=== PATIENT | female | born 1960 | race African-American/Black ===

== ENCOUNTER 2019-01-12 19:36 | Emergency (ER) | payer OTHER ==
[2019-01-12] MEDS ORDERED: Acetaminophen 500 MG TAB ONE (19:50)
[2019-01-12 20:03] LABS: #Lymphocytes 1.8 thou/uL (1.20-3.40); #Monocytes 0.3 thou/uL (0.11-0.59); #Neutrophils 5.2 thou/uL (1.40-6.50); %Basophils 0.5 % (0.0-1.0); %Eosinophils 0.4 % (0.0-10.0); %Lymphocytes 24.6 % (21.0-51.0); %Monocytes 4.5 % (0.0-10.0); Hemoglobin 15.4 g/dL (12.0-16.0); Mean Corpuscular HGB CONC 33.4 g/dL (32.0-36.0); Mean Platelet Volume 8.4 fL (7.4-10.4); Platelet Count 164 thou/uL (130-400); RBC Distribution Width 13.3 % (11.5-14.5); White Blood Cell (WBC) Count 7.4 thou/uL (4.8-10.8)
--- NOTE | 2019-01-12 20:16 | RAD ---
PORTABLE CHEST: 01/12/19 HISTORY: Weakness. Lungs are clear. Heart and mediastinum unremarkable. Vasculature normal. IMPRESSION: Unremarkable chest. POS: AGW
--- NOTE | 2019-01-12 20:16 | RAD ---
RIGHT HIP: 01/12/19 Two views. HISTORY: Injury. Hip pain. Exam is suboptimal. The frontal exam shows poor detail possibly from soft tissue attenuation. There a re mild degenerative changes at the hip with some spurring from the femoral head. No definite fractur e identified. IMPRESSION: Suboptimal exam. No definite fracture identified. Consider repeat exam with AP pelvis. POS: AGW
[2019-01-12 20:24] LABS: ALT (SGPT) Less than 7 U/L (8-55); AST (SGOT) 9 U/L (5-34); Albumin 3.7 g/dL (3.5-5.0); Alkaline Phosphatase 74 U/L (40-150); Anion Gap 11 mmol/L (10-20); BUN (Urea Nitrogen) 14 mg/dL (9.8-20.1); Bilirubin, Total 0.6 mg/dL (0.2-1.2); CK (CPK) 22 U/L (29-168); Calc. Creatinine Clearance 0 mL/min (70-130); Calcium 8.5 mg/dL (7.8-10.44); Carbon Dioxide 23 mmol/L (22-29); Chloride 105 mmol/L (98-107); Estimated GFR-MDRD 85; Globulin 3.1 g/dL (2.4-3.5); Glucose 96 mg/dL (70-105); Lipase 11 U/L (8-78); Protein, Total 6.8 g/dL (6.0-8.3); Sodium 135 mmol/L (136-145)
[2019-01-12 20:58] LABS: Bilirubin Negative (Negative); Blood, Urine Negative (Negative); Clarity CLOUDY (Clear); Glucose, Urine (Dipstick) Negative (Negative); Leukocyte Negative (Negative); Nitrite Negative (Negative); Protein, Urine (Dipstick) Negative (Neg-Trace); Specific Gravity, Urine 1.008 (1.002-1.036); pH, Urine 6.5 (5.0-9.0)
== END 2019-01-12 22:43 | disposition home or self-care (01) ==
LOC: ERS 19:36
DX: E86.0 Dehydration (principal); F17.210 Nicotine dependence, cigarettes, uncomplicated; I10 Essential (primary) hypertension; Z79.899 Other long term (current) drug therapy
CPT/HCPCS: 36415; 71045; 80053; 81003; 82550; 83605; 83690; 83735; 83880; 84484; 85025; 93005; 96360

== ENCOUNTER 2019-06-25 13:06 | Inpatient (IN) | payer OTHER ==
[~2019-06-25 13:06] MED LIST: ISOVUE-370 76%-LOCM 1 ML ONE
[2019-06-25 13:34] LABS: #Lymphocytes 1.5 thou/uL (1.20-3.40); #Monocytes 0.4 thou/uL (0.11-0.59); #Neutrophils 3.8 thou/uL (1.40-6.50); %Basophils 0.2 % (0.0-1.0); %Eosinophils 0.4 % (0.0-10.0); %Lymphocytes 26.7 % (21.0-51.0); %Monocytes 6.6 % (0.0-10.0); %Neutrophils 66.1 % (42.0-75.0); Hemoglobin 15.3 g/dL (12.0-16.0); INR-International Normal Ratio 0.9; Mean Corpuscular HGB CONC 33.3 g/dL (32.0-36.0); Mean Corpuscular Hemoglobin 28.6 pg (27.0-31.0); Mean Corpuscular Volume 85.9 fL (78.0-98.0); PTT 27.2 SEC (22.9-36.1); Platelet Count 186 thou/uL (130-400); Prothrombin Time 12.4 SEC (12.0-14.7); RBC Distribution Width 12.9 % (11.5-14.5); Red Blood Cell (RBC) Count 5.34 mill/uL (4.20-5.40); White Blood Cell (WBC) Count 5.8 thou/uL (4.8-10.8)
--- NOTE | 2019-06-25 13:35 | CT ---
CT HEAD WITHOUT CONTRAST: INDICATIONS: Stroke alert. FINDINGS: There is no acute intracranial hemorrhage or mass effect. There is multifocal white matter hypoattenu ation, indicative of lacunar infarctions and microvascular ischemic disease. Lacunar infarction in th e left cerebellar hemisphere is also present. The ventricular system demonstrates mild ex vacuo dilat ation. IMPRESSION: 1. No acute intracranial hemorrhage or mass effect. 2. Multifocal lacunar infarctions and white matter ischemic disease. Telephone call placed at 1317 hours on 06/25/2019. CODE CR
--- NOTE | 2019-06-25 13:50 | CT ---
CTA Angio Head W WO Con History: Stroke alert. Left upper and lower weakness Comparison: CT brain same day Findings: CT angiogram of the head and neck performed after the intravenous administration of contras t. 3-D rendering provided. There is a spiculated left upper lobe mass measuring 1.4 cm in size. Severe emphysema the upper lobes. Moderate degenerative changes of the cervical spine. There is occlusion of the right vertebral artery from the level of the origin from the subclavian art norma to the level of C5. Left vertebral artery is patent and dominant. The intradural right vertebral artery is attenuated and appears to terminate in the PICA. There is occlusion of the left A2 segment anterior cerebral artery axial image [id number] with adequate peripheral vascular flow likely from collaterals from the left MCA distribution. Impression: 1. Occluded left A2 segment anterior cerebral artery. 2. Occluded right vertebral artery from the subclavian to the level of C5 with hypoplastic intradural vertebral artery which appears to terminate within the PICA. 3. Spiculated left upper lobe mass concerning for malignancy. Pulmonary consultation advised. Workup recommended. Code CR: Dr. Johnson notified of findings via telephone at 1:38 PM
[2019-06-25 13:53] LABS: ALT (SGPT) Less than 7 U/L (8-55); AST (SGOT) 8 U/L (5-34); Alkaline Phosphatase 66 U/L (40-110); Anion Gap 11 mmol/L (10-20); BUN (Urea Nitrogen) 8 mg/dL (9.8-20.1); Bilirubin, Total 0.9 mg/dL (0.2-1.2); Calc. Creatinine Clearance 0 mL/min (70-130); Calcium 9.2 mg/dL (7.8-10.44); Carbon Dioxide 23 mmol/L (22-29); Chloride 104 mmol/L (98-107); Estimated GFR-MDRD Greater than 90; Globulin 3.3 g/dL (2.4-3.5); Glucose 93 mg/dL (70-105); Potassium 3.7 mmol/L (3.5-5.1); Protein, Total 7.3 g/dL (6.0-8.3); Sodium 134 mmol/L (136-145)
[2019-06-25 16:01] LABS: Acetaminophen Less than 6.0 mcg/mL (10.0-30.0); Alcohol Less than 10 mg/dL (Less than 10); Salicylate Less than 8.0 mg/dL (15.0-30.0)
[2019-06-25 16:45] LABS: Troponin I Less than 0.010 ng/mL (< 0.028)
[2019-06-25] MEDS ORDERED: Bisacodyl 10 MG SUPP PR PRN (16:47)
[2019-06-25] MEDS ORDERED: hydrALAZINE 20 MG/ML VIAL SLOW IVP PRN (16:47)
[2019-06-25] MEDS ORDERED: Milk Of Magnesia 30 ML UDCUP PO PRN (16:47)
[2019-06-25] MEDS ORDERED: Communication Order-Pharmacy FS SCH (16:47)
[2019-06-25] MEDS ORDERED: Labetalol HCl 100 MG/20 ML VIAL SLOW IVP PRN (16:47)
[2019-06-25] MEDS ORDERED: niCARdipine 25 MG in Sodium Chloride 0.9% 250 ML 250 ML IVPB PRN (16:47)
[2019-06-25] MEDS ORDERED: Ondansetron ODT 4 MG TAB PO PRN (16:51)
[2019-06-25] MEDS ORDERED: Calcium Carbonate 500 MG ChewTAB PO PRN (16:51)
[2019-06-25] MEDS ORDERED: Ondansetron PF 4 MG/2 ML Vial IVP PRN (16:51)
[2019-06-25] MEDS ORDERED: Senokot S 8.6-50 MG TAB PO PRN (16:51)
[2019-06-25] MEDS: Sodium Chloride 0.9% 1,000 ML IV SCH (19:30)
[2019-06-25] MEDS: Acetaminophen 325 MG TAB PO PRN (19:31)
[2019-06-25] MEDS: Atorvastatin Calcium 40 MG TAB PO SCH (20:42)
[2019-06-25] MEDS: Docusate 100 MG CAP PO SCH (20:42)
[2019-06-25] MEDS: Famotidine 20 MG TAB PO SCH (20:42)
--- NOTE | 2019-06-25 22:15 | HP ---
PRIMARY CARE PHYSICIAN: [facility]. CHIEF COMPLAINT: Left-sided weakness since 12:00 p.m. HISTORY OF PRESENT ILLNESS: The patient is a 59-year-old female with hypertension and tobacco dependence, currently not on any medications, presented to the emergency room with above complaints. Around 12:00 p.m., the patient had sudden onset of left-sided weakness while she was sitting. She fell on the floor. She was however able to feel her left side. She denies any double vision, blurring of vision, facial asymmetry, weakness, numbness, headache, or any other complaints. She denies previous symptoms in the past. She is currently not on any medications. No seizures reported. She denies any chest pain, palpitations, or syncope. In the emergency room, she received tPA. Symptoms completely resolved half way to the tPA. PAST MEDICAL HISTORY: 1. Hypertension. 2. Tobacco dependence. 3. Medication noncompliance. PAST SURGICAL HISTORY: section x4. ALLERGIES: NO KNOWN DRUG ALLERGIES. CURRENT HOME MEDICATIONS: Reviewed with the patient and none. SOCIAL HISTORY: The patient smokes 3 to 4 cigars on a daily basis. No alcohol or drug use. FAMILY HISTORY: Negative for heart disease. REVIEW OF SYSTEMS: All other review of systems were reviewed and were found negative. PHYSICAL EXAMINATION: VITAL SIGNS: Temperature 98, respiration of 16, blood pressure 120/80, O2 saturation 99% on room air, pulse rate of 98. GENERAL: A 59-year-old female in no apparent distress. HEENT: Head, atraumatic and normocephalic. Sclerae anicteric. Moist mucous membranes. No oral lesion. NECK: Supple. No JVD. No carotid bruit. LUNGS: Clear to auscultation bilaterally. No wheezing, rales, or rhonchi. HEART: S1 and S2 present. Regular rate and rhythm. No murmurs, rubs, or gallops appreciated. ABDOMEN: Soft, nontender. Bowel sounds present. No rebound or guarding. EXTREMITIES: No edema or calf tenderness. NEUROLOGIC: Grossly nonfocal. Moves all 4 extremities. PSYCHIATRY: Alert, awake, oriented x3. SKIN: Warm and dry. LYMPH NODES: No palpable lymph nodes in the neck. PERIPHERAL VASCULAR: Radial pulses palpable bilaterally. MUSCULOSKELETAL: No joint swelling tenderness. LABORATORY FINDINGS: CBC showed WBC 5.8 with hemoglobin 15.3, hematocrit 45.9, platelet 186. PT/INR, PTT normal range. Chemistry showed sodium 134, potassium 3.7, chloride 104, bicarb 23, creatinine 0.68. Magnesium 2.2. Troponin was negative. IMAGING DATA: CT scan of the brain by my review was negative for acute findings. It showed white matter ischemic disease with multifocal lacunar infarctions. CT of the [place] showed occluded left A2 segment of the anterior cerebral artery with occluded right vertebral artery from subclavian to C5. It also showed some spiculated left upper lobe lung mass. EKG by my review showed sinus rhythm. IMPRESSION: 1. Acute right MCA distribution CVA causing left-sided weakness, status post tPA. 2. Hypertension, noncompliant with medications. 3. Tobacco dependence, the patient was counseled. 4. Hyponatremia. 5. Left upper lobe lung mass with severe emphysema on the CT angio. PLAN: The patient will be monitored in the intensive care unit. The patient received tPA in the emergency room. We will start aspirin as well as DVT prophylaxis 24 hours after tPA. Aspirin will be initiated at that time. We will start statins. We will check fasting lipid profile. Consult Neurology. We will get MRI of the brain as well as echocardiogram. CTA has been done. We will check hemoglobin A1c. The patient was advised to follow up with Pulmonary as outpatient for lung mass evaluation. Plan of care was discussed with the patient in detail, she stated understanding. Job ID: [id number]
[2019-06-26] MEDS: Acetaminophen 325 MG TAB PO PRN ×3 (06:45→21:10)
[2019-06-26] MEDS: Famotidine 20 MG TAB PO SCH ×2 (08:16→21:09)
[2019-06-26] MEDS: Docusate 100 MG CAP PO SCH ×2 (08:16→21:09)
[2019-06-26] MEDS: Sodium Chloride 0.9% 1,000 ML IV SCH (08:16)
[2019-06-26] MEDS ORDERED: FLU VACC QS2019-20(6MOS UP)/PF 60 MCG/0.5 ML SYRINGE IM ONE (09:00)
--- NOTE | 2019-06-26 10:09 | MRI ---
MRI Brain WO Con: 06/26/2019 4:48 PM CLINICAL HISTORY: CVA. COMPARISON: CT head 06/25/2019 FINDINGS: Extra axial spaces: Normal in size and morphology for the patient's age. Acute infarction: None. Ventricular system: Mild ex vacuo dilatation. Basal cisterns: Normal. Cerebral parenchyma: Microvascular ischemic changes. There are superimposed cavitary lacunar infarcti ons. Associated hemosiderin staining is seen at the right basal ganglia. Midline shift: None. Cerebellum: Multifocal lacunar infarctions of each cerebellar hemisphere. Brainstem: Normal. Paranasal sinuses:Clear Mild mastoid fluid signal on the left. IMPRESSION: No acute intracranial abnormality. Microvascular ischemic disease and remote lacunar infarctions.
--- NOTE | 2019-06-26 10:20 | CT ---
CTA Angio Head W WO Con History: Stroke alert. Left upper and lower weakness Comparison: CT brain same day Findings: CT angiogram of the head and neck performed after the intravenous administration of contras t. 3-D rendering provided. There is a spiculated left upper lobe mass measuring 1.4 cm in size. Severe emphysema the upper lobes. Moderate degenerative changes of the cervical spine. There is occlusion of the right vertebral artery from the level of the origin from the subclavian art norma to the level of C5. Left vertebral artery is patent and dominant. The intradural right vertebral artery is attenuated and appears to terminate in the PICA. There is occlusion of the left A2 segment anterior cerebral artery axial image [id number] with adequate peripheral vascular flow likely from collaterals from the left MCA distribution. Impression: 1. Occluded left A2 segment anterior cerebral artery. 2. Occluded right vertebral artery from the subclavian to the level of C5 with hypoplastic intradural vertebral artery which appears to terminate within the PICA. 3. Spiculated left upper lobe mass concerning for malignancy. Pulmonary consultation advised. Workup recommended. Code CR: Dr. Johnson notified of findings via telephone at 1:38 PM Transcribed Date/Time: 06/26/2019 10:20 AM
--- NOTE | 2019-06-26 12:24 | CON ---
DATE OF CONSULTATION: 06/26/2019 SERVICE: Pulmonary Medicine. REASON FOR CONSULTATION: ICU patient. HISTORY OF PRESENT ILLNESS: The patient is a 59-year-old white female with past medical history significant for essentially nothing. She was in her usual state of health when she had the abrupt onset of left upper extremity and lower extremity weakness. She presented immediately to the emergency department. She was within the window and was administered tPA. Overnight, she had complete resolution in her neurologic injury. She currently is back to her usual state of health and denies having any nausea, vomiting, fevers, or chills. There were no significant bleeding events that occurred yesterday. PAST MEDICAL HISTORY: 1. Hypertension. 2. Tobacco abuse. PAST SURGICAL HISTORY: section x4. ALLERGIES: NO KNOWN DRUG ALLERGIES. MEDICATIONS: List of her inpatient medications were reviewed. No specific updates were made at this time. SOCIAL HISTORY: She smokes cigars on a daily basis. She denies any excessive alcohol or illicit drug use. She has no exposure to chemicals, dust, asbestos, or tuberculosis. FAMILY HISTORY: Noncontributory. REVIEW OF SYSTEMS: General; head, ears, eyes, nose, and throat; cardiovascular; respiratory; GI; ; musculoskeletal; neurologic; and skin is negative except as mentioned in the HPI. PHYSICAL EXAMINATION: VITAL SIGNS: Afebrile, pulse 74, respirations 18, and saturation 99% on room air, and blood pressure 132/92. GENERAL: The patient is awake. HEENT: Normocephalic and atraumatic. Sclerae white. Conjunctivae pink. Oral mucosa is moist without lesions. LUNGS: Decent air entry with no prolonged expiratory phase, wheezing, rhonchi, or crackles present. HEART: Normal rate and regular. ABDOMEN: Soft, nontender, and nondistended. Bowel sounds are positive. MUSCULOSKELETAL: No cyanosis or clubbing. There is no pitting in the bilateral lower extremities. NEUROLOGIC: Grossly nonfocal. LABORATORY DATA: CBC, INR, basic metabolic profile, liver function studies, troponin, and magnesium are all unremarkable. Salicylates, acetaminophen, and alcohol are also negative. IMAGING STUDIES: 1. CT of the brain demonstrates no acute intracranial abnormality. Multifocal lacunar infarcts are identified, likely old. 2. CT of the [place] demonstrates occluded left A2 segment anterior cerebral artery. Occluded right vertebral artery from the subclavian to the level of C5 with hypoplastic vertebral artery, which seems to terminate in the PICA. A left upper lobe pulmonary nodule is present. This is concerning for malignancy given its size and spiculation and location. 3. MRI of the brain demonstrates no acute intracranial abnormality. Microvascular ischemic disease is present. ASSESSMENT: 1. Neurologic spell, status post tPA. 2. Pulmonary nodule. 3. Emphysema based on CT chest. 4. Tobacco abuse. DISCUSSION AND PLAN: She is 24 hours post event. As such, she can be transitioned out of the ICU to the stroke unit. Additional diagnostic workup for the possible CVA per Primary Service. Regarding the pulmonary nodule, this thing has a roughly 46% chance of representing a malignant process. I will expedite an outpatient PET/ CT scan with close pulmonary followup. Ultimately, biopsy will need to be performed, but the point of the PET scan is to identify any distal disease that could stage her with a single procedure. If there is not distal disease, then she will require EBUS vs transcutaneous biopsy, as a bronchoscopy will not likely yield results given the location of this nodule. She has no further requirements for inpatient pulmonary or critical care opinion, so when she leaves the ICU, I will sign off. 70 minutes have been devoted to this patient in various activities. I personally reviewed all imaging studies and laboratory data noted within this document. For fifty percent of this time, I was interacting with the patient at the bedside or coordinating care with the care team. For the remainder of the time I was immediately available to the patient in the hospital unit. Job ID: [id number] MTDD
--- NOTE | 2019-06-26 14:54 | CON ---
DATE OF TELEMEDICINE CONSULTATION: 06/26/2019 HISTORY OF PRESENT ILLNESS: The patient is a 59-year-old lady, who came into the ER with history of sudden onset of left-sided weakness. She developed left facial droop, slurred speech, vision changes, and she came in within timeframe for IV tPA, and she received IV tPA, and she now has complete resolution of her symptoms. She has never had a stroke in the past, and she stated she does not think she has hypertension, and I reviewed her medical record from the hospital, and she has no known medical history except for hypertension, but she denied that, and she said she does not have diabetes either. PAST SURGICAL HISTORY: She had 4 C-sections. Last was in 1992. MEDICATIONS: She takes no medications at home. ALLERGIES: NO KNOWN DRUG ALLERGIES. SOCIAL HISTORY: She does not smoke. She does not drink alcohol. She does smoke 3-4 cigars per day. She lives by herself. FAMILY HISTORY: Her parents both in their 60s from cancer. Her brother in his 50s. Sister in her 40s. She is not sure what happened to them. The patient has 2 boys and 2 girls, and one of the daughters has cerebral palsy and she was born in 1987. REVIEW OF SYSTEMS: PULMONARY: Negative for shortness of breath or cough. GI: Negative for any nausea, vomiting, or diarrhea. HEMATOLOGIC: Negative for any bleeding diathesis. OPHTHALMOLOGIC: Negative for any vision problems. DERMATOLOGIC: Negative for any skin rashes. NEUROLOGIC: Positive for transient left-sided weakness. LABORATORY DATA: Her current lab workup; white count 5.8, hemoglobin 15.3, hematocrit 45.9, platelet count 186. Sodium 134, potassium 3.7, chloride 104, bicarb 23, BUN 8, creatinine 0.68. Liver functions within normal limits. PT 12.4. INR 0.9. IMAGING STUDIES: MRI was finally completed after my visit today with her. Her MRI shows no acute intracranial abnormality. CT angiogram performed yesterday showed no evidence of carotid artery disease. She does have occluded left A2 segment anterior cerebral artery, and she had occluded right vertebral artery as well and spiculated left upper lobe mass concerning for malignancy. PHYSICAL EXAMINATION: VITAL SIGNS: Heart rate 77, blood pressure 159/98, O2 sats 98, and her temperature 98 degrees Fahrenheit. GENERAL APPEARANCE: Well-built, well-nourished lady. CHEST: Clear vesicular breathing. CARDIOVASCULAR: S1, S2 heard. No murmurs. ABDOMEN: Soft and nontender. No organomegaly noted. NEUROLOGIC: Higher intellectual functions normal. Orientation to time, place, and person. Appropriate conversation. Cranial nerves 2 through 12 normal. Pupils bilaterally at 2 mm, reactive to light. Normal extraocular movements. Tongue midline. No atrophy noted. Normal sensation of face bilaterally. Normal elevation of palate bilaterally. MOTOR: Bulk normal. Tone normal. Strength 5/5 in upper and lower extremities in iliopsoas, hamstrings, quadriceps, ankle dorsiflexion and plantar flexion, deltoid, biceps, triceps, wrist extension and flexion, finger extension and flexion bilaterally. SENSORY: Normal to touch bilaterally in upper and lower extremities. CEREBELLAR: Normal [id number] and [id number]. IMPRESSION: The patient is a 59-year-old lady, who by her own history states that she does not have any known medical issues. She does not take any medications at home. She has positive family history of cancer and on imaging, she does seem to have lung mass which needs to be further investigated. She had an acute stroke , and she does have some vaso-occlusive disease on the CT angio, and her stroke symptoms resolved after administration of tPA, and on MRI, there does not seem to be any specific lesion. At this time, I do think she had a stroke likely due to chronic thrombotic disease rather than a cardioembolic event, and she might have underlying carcinoma which can increase the risk of coagulation disorders. TREATMENT RECOMMENDATIONS: Please complete workup including echocardiogram, for now aspirin plus statin for stroke prophylaxis, and she will need further workup for her carcinoma. We will follow up as needed. Job ID: [id number] [facility]
[2019-06-26] MEDS: Aspirin 325 mg Enteric Coated Tablet PO SCH (14:56)
[2019-06-26 15:40] LABS: #Eosinphils 0.1 thou/uL (0.0-0.7); #Lymphocytes 2.5 thou/uL (1.20-3.40); #Monocytes 0.4 thou/uL (0.11-0.59); #Neutrophils 3.7 thou/uL (1.40-6.50); %Basophils 0.6 % (0.0-1.0); %Eosinophils 0.8 % (0.0-10.0); %Lymphocytes 37.3 % (21.0-51.0); %Monocytes 5.3 % (0.0-10.0); Hemoglobin 15.5 g/dL (12.0-16.0); Mean Corpuscular HGB CONC 33.4 g/dL (32.0-36.0); Mean Corpuscular Hemoglobin 28.4 pg (27.0-31.0); Mean Corpuscular Volume 84.9 fL (78.0-98.0); Mean Platelet Volume 7.8 fL (7.4-10.4); Platelet Count 193 thou/uL (130-400); RBC Distribution Width 12.8 % (11.5-14.5); Red Blood Cell (RBC) Count 5.46 mill/uL (4.20-5.40); White Blood Cell (WBC) Count 6.6 thou/uL (4.8-10.8)
[2019-06-26 15:49] LABS: Hemoglobin A1c 5.1 % (4.0-6.0)
[2019-06-26 16:01] LABS: Anion Gap 11 mmol/L (10-20); BUN (Urea Nitrogen) 7 mg/dL (9.8-20.1); Calc. Creatinine Clearance 70 mL/min (70-130); Calcium 8.8 mg/dL (7.8-10.44); Carbon Dioxide 24 mmol/L (22-29); Chloride 106 mmol/L (98-107); Estimated GFR-MDRD 74; Glucose 92 mg/dL (70-105); Potassium 3.9 mmol/L (3.5-5.1); Sodium 137 mmol/L (136-145)
[2019-06-26 19:37] VITALS: BMI 26.1
[2019-06-26 20:09] LABS: Troponin I 0.013 ng/mL (< 0.028)
[2019-06-26] MEDS: Atorvastatin Calcium 40 MG TAB PO SCH (21:09)
[2019-06-26] MEDS: Enoxaparin Sodium 40 MG/0.4 ML SYRINGE SC SCH (21:10)
--- NOTE | 2019-06-26 21:33 | PDOC.HOSPP ---
- Subjective Encounter Date: 06/26/19 Encounter Time: 15:00 Subjective: Patient seen and examined for Acute CVA. No new focal deficits. No new complaints. No overnight events - Objective Vital Signs & Weight: Vital Signs (12 hours) Temp Pulse Pulse BP BP Pulse Ox Pulse Ox 06/26/19 20:00 98.2 F 06/26/19 15:46 98.2 F 06/26/19 15:44 68 115/97 H 06/26/19 13:55 71 80 167/95 H 166/105 H 98 98 06/26/19 12:00 98.0 F Weight Weight 156 lb 11.979 oz Most Recent Monitor Data Heart Rate from ECG 73 NIBP 146/88 NIBP BP-Mean 108 Respiration from ECG 16 SpO2 100 I&O: 06/25/19 06/26/19 06/27/19 06:59 06:59 06:59 Intake Total 1099 1903 Output Total 600 980 Balance 499 923 Result Diagrams: 06/26/19 15:33 06/26/19 15:33 Radiology Reviewed by me: Yes (MRI - chronic changes) EKG Reviewed by me: Yes (Tele SR) Hospitalist ROS - Review of Systems Respiratory: denies: cough, dry, shortness of breath, hemoptysis, SOB with excertion, pleuritic pain, sputum, wheezing, other Cardiovascular: denies: chest pain, palpitations, orthopnea, paroxysmal noc. dyspnea, edema, light headedness, other Gastrointestinal: denies: nausea, vomiting, abdominal pain, diarrhea, constipation, melena, hematochezia, other - Medication Medications: Active Medications Generic Name Dose Route Start Last Admin Trade Name Yaronq PRN Reason Stop Dose Admin Acetaminophen 650 mg 06/25/19 16:47 06/26/19 21:10 Tylenol PO 650 mg Q6H PRN Administration Headache/Fever/Mild Pain (1-3) Aspirin 325 mg 06/26/19 15:00 06/26/19 14:56 Ecotrin PO 325 mg 1500 CUATE Administration Atorvastatin Calcium 40 mg 06/25/19 21:00 06/26/19 21:09 Lipitor PO 40 mg HS CUATE Administration Docusate Sodium 100 mg 06/25/19 21:00 06/26/19 21:09 Colace PO 100 mg BID CUATE Administration Enoxaparin Sodium 40 mg 06/26/19 21:00 06/26/19 21:10 Lovenox SC 40 mg 2100 CUATE Administration Famotidine 20 mg 06/25/19 21:00 06/26/19 21:09 Pepcid PO 20 mg BID CUATE Administration Sodium Chloride 1,000 mls @ 70 mls/hr 06/25/19 18:30 06/26/19 08:16 Normal Saline 0.9% IV 06/26/19 23:59 1,000 mls .[id number] CUATE Administration - Exam General Appearance: NAD Neck: supple, no JVD Heart: RRR, no murmur Respiratory: CTAB, no wheezes, no rales, no ronchi Gastrointestinal: soft, non-tender, non-distended, normal bowel sounds Extremities: no edema Neurological: no new deficit Psychiatric: normal affect, A&O x 3 Hosp A/P - Plan DVT proph w/lovenox, DVT proph w/SCDs IMPRESSION: 1. Acute right MCA distribution CVA causing left-sided weakness, status post tPA. 2. Hypertension, noncompliant with medications. 3. Tobacco dependence. 4. Hyponatremia. 5. Left upper lobe lung mass concerning for malignancy. 6. Chronic diastolic HF. PLAN: ASA/Statins Conselled to quit smoking Malignancy w/u per Pulmonary Lipid profile in AM Stroke team Add low dose Amlodipine.
[2019-06-27] MEDS: Sodium Chloride 0.9% 1,000 ML IV SCH (05:34)
[2019-06-27 05:36] LABS: Cardiac Risk 3.5 (Less than 4.5)
[2019-06-27] MEDS: Docusate 100 MG CAP PO SCH ×2 (09:23→20:32)
[2019-06-27] MEDS: Famotidine 20 MG TAB PO SCH ×2 (09:24→20:32)
[2019-06-27] MEDS: Amlodipine 5 MG TAB PO SCH (09:29)
--- NOTE | 2019-06-27 12:42 | PRG ---
DATE OF SERVICE: 06/27/2019 SERVICE: Pulmonary Medicine. INTERVAL HISTORY: The patient is doing fine from respiratory standpoint. Breathing comfortably. No complaints of chest discomfort, fevers, chills, nausea, or vomiting. Otherwise, there has been no interval change to her condition. PHYSICAL EXAMINATION: VITAL SIGNS: Afebrile, pulse 71, blood pressure 137/90, respirations 22, and saturation 100% on room air. GENERAL: The patient is awake and alert, in no apparent distress. LUNGS: Very good air entry. No prolonged expiratory phase or wheezing present. HEART: Normal rate and regular. ABDOMEN: Soft, nontender, and nondistended. Bowel sounds are positive. MUSCULOSKELETAL: No cyanosis or clubbing. No pitting in the bilateral lower extremities. NEUROLOGIC: Grossly nonfocal. LABORATORY DATA: Triglycerides 94, cholesterol 155, and HDL 44. Troponin is essentially negative. IMAGING: Echocardiogram demonstrates normal ejection fraction, 1/3 diastolic dysfunction. No significant valvular abnormalities are appreciated. ASSESSMENT: 1. Neurologic spell, status post tPA. 2. Pulmonary nodule. 3. Emphysema, based on CT chest. 4. Tobacco abuse. DISCUSSION AND PLAN: I will arrange the patient to see me in the outpatient setting with a preclinic PET/CT. Based on this, we will decide where to a biopsy. At this point, she has no further requirements for inpatient Pulmonary or Critical Care opinion, and I will sign off once she leaves the ICU. From a respiratory perspective, she is stable for transition to the floor or discharged home. Job ID: [id number]
[2019-06-27] MEDS: Acetaminophen 325 MG TAB PO PRN (14:58)
[2019-06-27] MEDS: Aspirin 325 mg Enteric Coated Tablet PO SCH (14:58)
[2019-06-27] MEDS: Atorvastatin Calcium 40 MG TAB PO SCH (20:32)
[2019-06-27] MEDS: Enoxaparin Sodium 40 MG/0.4 ML SYRINGE SC SCH (20:32)
--- NOTE | 2019-06-27 22:23 | PDOC.HOSPP ---
- Subjective Encounter Date: 06/27/19 Encounter Time: 11:30 Subjective: Patient seen and examined for Acute CVA. No new focal weakness. No new complaints. No overnight events - Objective Vital Signs & Weight: Vital Signs (12 hours) Temp 06/27/19 12:00 98.6 F Weight Weight 156 lb 11.979 oz Most Recent Monitor Data Heart Rate from ECG 82 NIBP 149/89 NIBP BP-Mean 118 Respiration from ECG 20 SpO2 99 I&O: 06/26/19 06/27/19 06/28/19 06:59 06:59 06:59 Intake Total 1099 2377 490 Output Total 600 1680 650 Balance 499 697 -160 Result Diagrams: 06/26/19 15:33 06/26/19 15:33 Additional Labs: Laboratory Tests 06/27/19 04:36 Cholesterol 155 LDL Cholesterol, Calc 92 EKG Reviewed by me: Yes (Tele SR) Hospitalist ROS - Review of Systems Respiratory: denies: cough, dry, shortness of breath, hemoptysis, SOB with excertion, pleuritic pain, sputum, wheezing, other Cardiovascular: denies: chest pain, palpitations, orthopnea, paroxysmal noc. dyspnea, edema, light headedness, other - Medication Medications: Active Medications Generic Name Dose Route Start Last Admin Trade Name Freq PRN Reason Stop Dose Admin Acetaminophen 650 mg 06/25/19 16:47 06/27/19 14:58 Tylenol PO 650 mg Q6H PRN Administration Headache/Fever/Mild Pain (1-3) Amlodipine Besylate 2.5 mg 06/27/19 09:00 06/27/19 09:29 Norvasc PO 2.5 mg DAILY CUATE Administration Aspirin 325 mg 06/26/19 15:00 06/27/19 14:58 Ecotrin PO 325 mg 1500 CUATE Administration Atorvastatin Calcium 40 mg 06/25/19 21:00 06/27/19 20:32 Lipitor PO 40 mg HS CUATE Administration Docusate Sodium 100 mg 06/25/19 21:00 06/27/19 20:32 Colace PO 100 mg BID CUATE Administration Enoxaparin Sodium 40 mg 06/26/19 21:00 06/27/19 20:32 Lovenox SC 40 mg 2100 CUATE Administration Famotidine 20 mg 06/25/19 21:00 06/27/19 20:32 Pepcid PO 20 mg BID CUATE Administration - Exam General Appearance: NAD Heart: RRR, no gallops Respiratory: CTAB, no rales Gastrointestinal: soft, non-tender, normal bowel sounds Extremities: no edema Neurological: normal sensation to touch, no weakness, no new deficit Hosp A/P - Plan DVT proph w/lovenox, DVT proph w/SCDs 1. Acute right MCA distribution CVA causing left-sided weakness, status post tPA. 2. Hypertension, noncompliant with medications. 3. Tobacco dependence. 4. Hyponatremia. 5. Left upper lobe lung mass concerning for malignancy. 6. Chronic diastolic HF. PLAN: Cont ASA/Statins Malignancy w/u as outpt Cont low dose Amlodipine.
[2019-06-28] MEDS: Amlodipine 5 MG TAB PO SCH (08:39)
[2019-06-28] MEDS: Docusate 100 MG CAP PO SCH (08:39)
[2019-06-28] MEDS: Famotidine 20 MG TAB PO SCH (08:39)
--- NOTE | 2019-06-28 09:21 | CT ---
CT Brain WO Con HISTORY: CVA. Post TPA COMPARISON: 06/25/2019 FINDINGS: Chronic changes of chronic small vessel ischemic disease and remote lacunar infarctions are again seen. The ventricular size is stable and the basilar cisterns are patent. No evidence of acute infarct, hemorrhage midline shift or abnormal extra axial fluid collections is seen. The bony c alvarium is intact. IMPRESSION: No CT evidence of acute intracranial process.
[2019-06-28] MEDS: Aspirin 325 mg Enteric Coated Tablet PO SCH (14:25)
[2019-06-28 16:14] VITALS: BP 109/67; TEMP 97.8
--- NOTE | 2019-06-28 22:00 | DIS ---
DATE OF ADMISSION: 06/25/2019 DATE OF DISCHARGE: 06/28/2019 DISCHARGE DISPOSITION: Home. FOLLOWUP: 1. Follow up with primary care physician at [facility] in 1 week. 2. Follow up with Neurology, Jorge Allen MD, in 2 weeks. 3. Follow up with Pulmonary, Maxi Merritt MD, as scheduled. ALLERGIES: NO KNOWN DRUG ALLERGIES. DISCHARGE MEDICATIONS: 1. Aspirin 325 mg daily. 2. Lipitor 40 mg at bedtime. INPATIENT CONSULT: 1. Neurology, Dr. Rhoades. 2. Pulmonary, Dr. Merritt. DIAGNOSTIC TESTS: Fasting lipid profile showed LDL 92, cholesterol 155, HDL 44. Troponins were negative. Sodium 134 on admission, [address] scan of the brain on admission was negative for acute CVA. It showed multifocal lacunar infarctions and white matter ischemic disease. CT angiography of the head and neck showed occluded left A-2 segment anterior cerebral artery. 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 It also showed spiculated left upper lobe mass concerning for malignancy. MRI of the brain was negative for acute CVA. Echocardiogram showed left ventricular ejection fraction 55% to 60% with grade 1 of 3 diastolic dysfunction, mild mitral regurgitation, mild tricuspid regurgitation. BRIEF HOSPITAL COURSE: The patient is a 59-year-old female with ongoing tobacco abuse and medication noncompliance, presented to the hospital with sudden onset of left-sided weakness. She received tPA. While she was receiving tPA, her symptoms completely resolved. Please refer to the history and physical for further details. The patient was admitted to the intensive care unit with a diagnosis of acute right MCA distribution CVA causing left-sided weakness, status post tPA. She was monitored in the intensive care unit overnight. She did not show any new focal deficit. She was evaluated by Neurology. She underwent stroke workup as discussed above. Neurology recommended aspirin along with statins. She underwent CTA of the head and neck as discussed above. The patient was also found to have spiculated left upper lobe mass concerning for malignancy. She will follow up with Dr. Merritt for PET scan. FINAL DIAGNOSES: 1. 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 2. Hypertension. Blood pressure on the day of discharge is normal. For this reason, no antihypertensives were started. 3. Tobacco dependence. The patient was extensively counseled. 4. Hyponatremia, resolved. 5. Spiculated left upper lobe lung mass concerning for malignancy. 6. Chronic diastolic heart failure. TIME SPENT: Total time coordinating the discharge of this patient was 33 minutes. Job ID: [id number]
== END 2019-06-28 18:03 | disposition home or self-care (01) | DRG 62 ==
LOC: ERS 13:06 → CCU 15:45 → 2SE 06-27 20:02
PROVIDERS: ADMIT Internal Medicine; ATTEND Internal Medicine
DX: I63.411 Cerebral infarction due to embolism of right middle cerebral artery (principal); E87.1 Hypo-osmolality and hyponatremia; I50.32 Chronic diastolic (congestive) heart failure; C34.11 Malignant neoplasm of upper lobe, right bronchus or lung; G81.94 Hemiplegia, unspecified affecting left nondominant side; F17.210 Nicotine dependence, cigarettes, uncomplicated; J43.9 Emphysema, unspecified; I11.0 Hypertensive heart disease with heart failure; R29.810 Facial weakness; R47.81 Slurred speech; Z91.14 Patient's other noncompliance with medication regimen; R40.2412 Glasgow coma scale score 13-15, at arrival to emergency department; R29.712 NIHSS score 12
CPT/HCPCS: 36415; 36416; 70450; 70496; 70498; 70551; 80048; 80053; 80061; 80307; 83036; 83735; 84484; 85025; 85610; 85730; 93005; 93306; 96365; 99292; J1650; J2997; Q9966

== ENCOUNTER 2021-04-18 17:10 | Inpatient (IN) | payer OTHER ==
[2021-04-18 17:58] LABS: Hemoglobin 10.3 g/dL (12.0-16.0); Mean Corpuscular HGB CONC 33.2 g/dL (32.0-36.0); Mean Corpuscular Hemoglobin 23.5 pg (27.0-31.0); Mean Corpuscular Volume 70.6 fL (78.0-98.0); Mean Platelet Volume 8.7 fL (7.4-10.4); Platelet Count 370 thou/uL (130-400); RBC Distribution Width 16.2 % (11.5-14.5); Red Blood Cell (RBC) Count 4.38 mill/uL (4.20-5.40); White Blood Cell (WBC) Count 8.9 thou/uL (4.8-10.8)
[2021-04-18 18:14] LABS: Bilirubin Small (Negative); Blood, Urine Negative (Negative); Glucose, Urine (Dipstick) 100 mg/dL (Negative); Ketone, Urine 15 mg/dL (Negative); Leukocyte Negative (Negative); Nitrite Negative (Negative); Protein, Urine (Dipstick) Trace mg/dL (Neg-Trace); Specific Gravity, Urine 1.025 (1.005-1.030); Urobilinogen > or = 8.0 mg/dL (Less than 2); pH, Urine 6.5 (5.0-9.0)
[2021-04-18 18:16] LABS: ALT (SGPT) 9 U/L (8-55); AST (SGOT) 17 U/L (5-34); Alkaline Phosphatase 76 U/L (40-110); Anion Gap 13 mmol/L (10-20); BUN (Urea Nitrogen) 13 mg/dL (9.8-20.1); Bilirubin, Total 0.6 mg/dL (0.2-1.2); Calc. Creatinine Clearance 0 mL/min (70-130); Calcium 9.2 mg/dL (7.8-10.44); Carbon Dioxide 23 mmol/L (23-31); Chloride 99 mmol/L (98-107); Globulin 5.2 g/dL (2.4-3.5); Glucose 89 mg/dL (80-115); Potassium 3.4 mmol/L (3.5-5.1); Protein, Total 8.2 g/dL (5.8-8.1); Sodium 132 mmol/L (136-145)
[2021-04-18 18:22] LABS: Clarity Hazy (Clear)
[2021-04-18 18:22] LABS: #Monocytes 0.6 thou/uL (0.11-0.59); #Neutrophils 6.3 thou/uL (1.40-6.50); %Basophils 0.2 % (0.0-1.0); %Eosinophils 0.3 % (0.0-10.0); %Lymphocytes 22.1 % (21.0-51.0); %Monocytes 6.6 % (0.0-10.0); %Neutrophils 70.8 % (42.0-75.0); Anisocytosis SLIGHT = 6-15 cells (100X) (0-5/hpf); Elliptocytes SLIGHT = 2-5 cells (100X) (0-1/hpf); MDiff Complete? YES; Microcytosis SLIGHT = 6-15 cells (100X) (0-5/hpf); Platelet Morphology Comment Appears Adequate
[2021-04-18 18:25] LABS: RBC/HPF 0-3 HPF (0-3)
[2021-04-18 18:29] LABS: Bacteria/HPF None Seen HPF (None Seen); Squamous Epithelial None Seen HPF (0-3); WBC/HPF None Seen HPF (0-3)
[2021-04-18] MEDS ORDERED: Potassium Chloride 20 MEQ TAB ONE (20:11)
[2021-04-18] MEDS ORDERED: Ondansetron ODT 4 MG TAB PO PRN (21:12)
[2021-04-18] MEDS ORDERED: Senokot S 8.6-50 MG TAB PO PRN (21:12)
[2021-04-18] MEDS ORDERED: Acetaminophen 325 MG TAB PO PRN (21:12)
[2021-04-18] MEDS ORDERED: Potassium Chloride 20 MEQ TAB PO SCH (22:00)
[2021-04-18] MEDS ORDERED: Labetalol HCl 100 MG/20 ML VIAL SLOW IVP PRN (22:39)
[2021-04-18] MEDS: Nicotine 21 MG PATCH TD SCH (23:34)
[2021-04-19] MEDS ORDERED: Sodium Chloride 0.9% 1,000 ML IV SCH (03:45)
[2021-04-19 05:27] LABS: #Lymphocytes 1.8 thou/uL (1.20-3.40); #Monocytes 0.6 thou/uL (0.11-0.59); %Basophils 0.2 % (0.0-1.0); %Eosinophils 0.6 % (0.0-10.0); %Lymphocytes 20.9 % (21.0-51.0); %Monocytes 7.2 % (0.0-10.0); %Neutrophils 71.1 % (42.0-75.0); Hemoglobin 9.2 g/dL (12.0-16.0); Mean Corpuscular HGB CONC 33.8 g/dL (32.0-36.0); Mean Corpuscular Volume 71.1 fL (78.0-98.0); Mean Platelet Volume 8.3 fL (7.4-10.4); Platelet Count 321 thou/uL (130-400); RBC Distribution Width 16.1 % (11.5-14.5); Red Blood Cell (RBC) Count 3.84 mill/uL (4.20-5.40); White Blood Cell (WBC) Count 8.4 thou/uL (4.8-10.8)
[2021-04-19 05:48] LABS: Anion Gap 13 mmol/L (10-20); BUN (Urea Nitrogen) 7 mg/dL (9.8-20.1); Calc. Creatinine Clearance 126 mL/min (70-130); Calcium 8.5 mg/dL (7.8-10.44); Carbon Dioxide 18 mmol/L (23-31); Chloride 102 mmol/L (98-107); Glucose 78 mg/dL (80-115); Potassium 4.4 mmol/L (3.5-5.1); Sodium 129 mmol/L (136-145)
[2021-04-19] MEDS: Sodium Chloride 0.9% 1,000 ML IV SCH ×2 (09:04→16:32)
[2021-04-19] MEDS: Enoxaparin Sodium 40 MG/0.4 ML SYRINGE SC SCH (09:05)
[2021-04-19] MEDS: Famotidine 20 MG TAB PO SCH ×2 (09:05→21:57)
[2021-04-19 19:15] LABS: SARS-CoV-2 PCR by NAA Not Detected (NotDetected)
[2021-04-19] MEDS: Atorvastatin Calcium 20 MG TAB PO SCH (21:57)
[2021-04-20] MEDS: Nicotine 21 MG PATCH TD SCH ×2 (01:09→21:29)
[2021-04-20 05:55] LABS: #Lymphocytes 1.8 thou/uL (1.20-3.40); #Monocytes 0.6 thou/uL (0.11-0.59); #Neutrophils 5.8 thou/uL (1.40-6.50); %Eosinophils 0.5 % (0.0-10.0); %Lymphocytes 21.5 % (21.0-51.0); %Monocytes 6.9 % (0.0-10.0); %Neutrophils 71.1 % (42.0-75.0); Hemoglobin 9.4 g/dL (12.0-16.0); Mean Corpuscular HGB CONC 32.3 g/dL (32.0-36.0); Mean Corpuscular Hemoglobin 22.9 pg (27.0-31.0); Mean Corpuscular Volume 70.8 fL (78.0-98.0); Mean Platelet Volume 8.9 fL (7.4-10.4); Platelet Count 366 thou/uL (130-400); RBC Distribution Width 16.1 % (11.5-14.5); White Blood Cell (WBC) Count 8.2 thou/uL (4.8-10.8)
[2021-04-20] MEDS: Sodium Chloride 0.9% 1,000 ML IV SCH ×2 (06:13→09:32)
[2021-04-20 06:19] LABS: Anion Gap 12 mmol/L (10-20); BUN (Urea Nitrogen) 6 mg/dL (9.8-20.1); Calc. Creatinine Clearance 130 mL/min (70-130); Calcium 8.5 mg/dL (7.8-10.44); Carbon Dioxide 22 mmol/L (23-31); Cardiac Risk 4.2 (Less than 4.5); Chloride 98 mmol/L (98-107); Cholesterol 126 mg/dl (< 200 Desired); Glucose 100 mg/dL (80-115); HDL Cholesterol 30 mg/dL (>60 Neg Risk); Iron Less than 8 ug/dL (50-170); Iron Binding Capacity, Total 150 mcg/dL (265-497); LDL Cholesterol, Calculated 83 mg/dL; Potassium 3.7 mmol/L (3.5-5.1); Sodium 128 mmol/L (136-145); Triglycerides 65 mg/dL (Less than 150)
[2021-04-20 06:26] LABS: Iron 11 ug/dL (50-170); Iron Binding Capacity, Total 149 mcg/dL (265-497)
[2021-04-20 09:02] VITALS: BMI 29.9
[2021-04-20] MEDS: Famotidine 20 MG TAB PO SCH ×2 (09:31→21:17)
[2021-04-20] MEDS: Enoxaparin Sodium 40 MG/0.4 ML SYRINGE SC SCH (09:31)
[2021-04-20] MEDS: Aspirin 81 mg Enteric Coated Tablet PO SCH (09:31)
[2021-04-20] MEDS ORDERED: Potassium Chloride 20 MEQ TAB PO SCH (10:15)
[2021-04-20 10:39] LABS: Magnesium 1.8 mg/dL (1.6-2.6); Phosphorus 2.9 mg/dL (2.3-4.7)
[2021-04-20] MEDS ORDERED: Iron, Sodium Ferric Gluconate 250 MG in Sodium Chloride 0.9% 250 ML 250 ML IVPB SCH (12:00)
[2021-04-20] MEDS ORDERED: Iopamidol-370 76% 500 ML 1 ML ONE (15:12)
[2021-04-20] MEDS: Atorvastatin Calcium 20 MG TAB PO SCH (21:17)
[2021-04-21 07:36] LABS: Albumin 2.7 g/dL (3.4-4.8); Anion Gap 11 mmol/L (10-20); BUN (Urea Nitrogen) 8 mg/dL (9.8-20.1); BUN/Creatinine Ratio 13.33; Calc. Creatinine Clearance 121 mL/min (70-130); Carbon Dioxide 21 mmol/L (23-31); Chloride 101 mmol/L (98-107); Glucose 103 mg/dL (80-115); Phosphorus 3.7 mg/dL (2.3-4.7); Potassium 4.1 mmol/L (3.5-5.1); Sodium 129 mmol/L (136-145)
[2021-04-21] MEDS: Famotidine 20 MG TAB PO SCH ×2 (09:05→21:17)
[2021-04-21] MEDS: Enoxaparin Sodium 40 MG/0.4 ML SYRINGE SC SCH (09:05)
[2021-04-21] MEDS: Aspirin 81 mg Enteric Coated Tablet PO SCH (09:05)
[2021-04-21] MEDS ORDERED: Iron, Sodium Ferric Gluconate 250 MG in Sodium Chloride 0.9% 250 ML 250 ML IVPB SCH (10:45)
[2021-04-21] MEDS: Dexamethasone 4 mg/ml Vial SLOW IVP SCH ×2 (14:36→21:16)
[2021-04-21] MEDS: Atorvastatin Calcium 20 MG TAB PO SCH (21:17)
[2021-04-21] MEDS: Nicotine 21 MG PATCH TD SCH (21:31)
[2021-04-22 06:05] LABS: #Lymphocytes 1.3 thou/uL (1.20-3.40); #Monocytes 0.2 thou/uL (0.11-0.59); #Neutrophils 6.1 thou/uL (1.40-6.50); %Basophils 0.1 % (0.0-1.0); %Eosinophils 0.1 % (0.0-10.0); %Lymphocytes 17.1 % (21.0-51.0); %Neutrophils 80.7 % (42.0-75.0); Hemoglobin 10.5 g/dL (12.0-16.0); Mean Corpuscular HGB CONC 31.6 g/dL (32.0-36.0); Mean Corpuscular Hemoglobin 22.3 pg (27.0-31.0); Mean Corpuscular Volume 70.7 fL (78.0-98.0); Mean Platelet Volume 9.2 fL (7.4-10.4); Platelet Count 400 thou/uL (130-400); RBC Distribution Width 16.5 % (11.5-14.5); Red Blood Cell (RBC) Count 4.72 mill/uL (4.20-5.40); White Blood Cell (WBC) Count 7.6 thou/uL (4.8-10.8)
[2021-04-22 06:28] LABS: ALT (SGPT) 12 U/L (8-55); AST (SGOT) 18 U/L (5-34); Albumin 2.9 g/dL (3.4-4.8); Alkaline Phosphatase 68 U/L (40-110); Anion Gap 13 mmol/L (10-20); BUN (Urea Nitrogen) 11 mg/dL (9.8-20.1); Bilirubin, Total 0.4 mg/dL (0.2-1.2); Calc. Creatinine Clearance 126 mL/min (70-130); Calcium 9.4 mg/dL (7.8-10.44); Carbon Dioxide 20 mmol/L (23-31); Chloride 100 mmol/L (98-107); Globulin 5.3 g/dL (2.4-3.5); Glucose 125 mg/dL (80-115); Potassium 4.4 mmol/L (3.5-5.1); Protein, Total 8.2 g/dL (5.8-8.1); Sodium 129 mmol/L (136-145)
[2021-04-22] MEDS: Aspirin 81 mg Enteric Coated Tablet PO SCH (10:40)
[2021-04-22] MEDS: Enoxaparin Sodium 40 MG/0.4 ML SYRINGE SC SCH (10:40)
[2021-04-22] MEDS: Famotidine 20 MG TAB PO SCH ×2 (10:41→21:32)
[2021-04-22] MEDS: Sodium Chloride 1 GM TAB PO SCH ×3 (12:25→21:32)
[2021-04-22] MEDS ORDERED: Amlodipine 5 MG TAB PO SCH (14:30)
[2021-04-22 15:16] LABS: Kappa Lambda Light Chain Ratio 1.68 (0.26-1.65); Kappa Light Chains 88.6 mg/L (3.3-19.4); Lambda Light Chain 52.6 mg/L (5.7-26.3)
[2021-04-22] MEDS: Dexamethasone 4 mg/ml Vial SLOW IVP SCH ×3 (15:51→21:32)
[2021-04-22] MEDS: Nicotine 21 MG PATCH TD SCH (21:32)
[2021-04-22] MEDS: Atorvastatin Calcium 20 MG TAB PO SCH (21:32)
[2021-04-23] MEDS: Dexamethasone 4 mg/ml Vial SLOW IVP SCH ×3 (06:05→20:41)
[2021-04-23 07:30] LABS: #Lymphocytes 1.8 thou/uL (1.20-3.40); #Monocytes 0.6 thou/uL (0.11-0.59); #Neutrophils 8.9 thou/uL (1.40-6.50); %Basophils 0.1 % (0.0-1.0); %Eosinophils 0.1 % (0.0-10.0); %Lymphocytes 16.3 % (21.0-51.0); %Monocytes 4.9 % (0.0-10.0); %Neutrophils 78.6 % (42.0-75.0); Hemoglobin 10.9 g/dL (12.0-16.0); Mean Corpuscular HGB CONC 31.4 g/dL (32.0-36.0); Mean Corpuscular Hemoglobin 22.2 pg (27.0-31.0); Mean Corpuscular Volume 70.7 fL (78.0-98.0); Mean Platelet Volume 8.8 fL (7.4-10.4); Platelet Count 436 thou/uL (130-400); RBC Distribution Width 16.6 % (11.5-14.5); Red Blood Cell (RBC) Count 4.92 mill/uL (4.20-5.40); White Blood Cell (WBC) Count 11.3 thou/uL (4.8-10.8)
[2021-04-23 07:54] LABS: ALT (SGPT) 12 U/L (8-55); AST (SGOT) 23 U/L (5-34); Alkaline Phosphatase 72 U/L (40-110); Anion Gap 11 mmol/L (10-20); BUN (Urea Nitrogen) 15 mg/dL (9.8-20.1); Bilirubin, Total 0.3 mg/dL (0.2-1.2); Calc. Creatinine Clearance 126 mL/min (70-130); Carbon Dioxide 23 mmol/L (23-31); Chloride 100 mmol/L (98-107); Glucose 118 mg/dL (80-115); Potassium 4.1 mmol/L (3.5-5.1); Sodium 130 mmol/L (136-145)
[2021-04-23] MEDS: Amlodipine 5 MG TAB PO SCH (09:30)
[2021-04-23] MEDS: Famotidine 20 MG TAB PO SCH ×2 (09:30→20:38)
[2021-04-23] MEDS: Aspirin 81 mg Enteric Coated Tablet PO SCH (09:31)
[2021-04-23] MEDS: Enoxaparin Sodium 40 MG/0.4 ML SYRINGE SC SCH (09:31)
[2021-04-23] MEDS: Sodium Chloride 1 GM TAB PO SCH ×3 (09:31→20:41)
[2021-04-23] MEDS ORDERED: Sodium Bicarbonate 2.5 MEQ/5 ML VIAL ONE (14:02)
[2021-04-23] MEDS ORDERED: Lidocaine 1% PF 5 ML VIAL ONE (14:02)
[2021-04-23] MEDS ORDERED: Acetaminophen 500 MG TAB PO PRN (16:07)
[2021-04-23] MEDS: Nicotine 21 MG PATCH TD SCH (20:38)
[2021-04-23] MEDS: Atorvastatin Calcium 20 MG TAB PO SCH (20:41)
[2021-04-24] MEDS: Dexamethasone 4 mg/ml Vial SLOW IVP SCH ×3 (05:08→20:37)
[2021-04-24 07:31] LABS: Anion Gap 13 mmol/L (10-20); BUN (Urea Nitrogen) 17 mg/dL (9.8-20.1); Calc. Creatinine Clearance 121 mL/min (70-130); Carbon Dioxide 21 mmol/L (23-31); Chloride 100 mmol/L (98-107); Glucose 105 mg/dL (80-115); Potassium 4.3 mmol/L (3.5-5.1); Sodium 130 mmol/L (136-145)
[2021-04-24] MEDS: Amlodipine 5 MG TAB PO SCH (08:49)
[2021-04-24] MEDS: Famotidine 20 MG TAB PO SCH ×2 (08:49→20:36)
[2021-04-24] MEDS: Enoxaparin Sodium 40 MG/0.4 ML SYRINGE SC SCH (08:53)
[2021-04-24] MEDS: Sodium Chloride 1 GM TAB PO SCH ×3 (08:53→20:40)
[2021-04-24] MEDS: Aspirin 81 mg Enteric Coated Tablet PO SCH (08:53)
[2021-04-24] MEDS: Sodium Bicarbonate Tab 325 MG TAB PO SCH ×2 (14:58→20:36)
[2021-04-24] MEDS: Nicotine 21 MG PATCH TD SCH (20:35)
[2021-04-24] MEDS: Atorvastatin Calcium 20 MG TAB PO SCH (20:36)
[2021-04-25] MEDS: Dexamethasone 4 mg/ml Vial SLOW IVP SCH ×3 (04:55→21:41)
[2021-04-25 06:00] LABS: #Lymphocytes 2.9 thou/uL (1.20-3.40); #Monocytes 1.2 thou/uL (0.11-0.59); #Neutrophils 11.3 thou/uL (1.40-6.50); %Basophils 0.2 % (0.0-1.0); %Eosinophils 0.1 % (0.0-10.0); %Lymphocytes 18.8 % (21.0-51.0); %Monocytes 7.6 % (0.0-10.0); %Neutrophils 73.2 % (42.0-75.0); Hemoglobin 11.4 g/dL (12.0-16.0); Mean Corpuscular HGB CONC 32.1 g/dL (32.0-36.0); Mean Corpuscular Hemoglobin 22.9 pg (27.0-31.0); Mean Corpuscular Volume 71.4 fL (78.0-98.0); Mean Platelet Volume 9.2 fL (7.4-10.4); Platelet Count 383 thou/uL (130-400); RBC Distribution Width 17.4 % (11.5-14.5); White Blood Cell (WBC) Count 15.5 thou/uL (4.8-10.8)
[2021-04-25 06:25] LABS: ALT (SGPT) 23 U/L (8-55); AST (SGOT) 26 U/L (5-34); Alkaline Phosphatase 80 U/L (40-110); Anion Gap 13 mmol/L (10-20); BUN (Urea Nitrogen) 18 mg/dL (9.8-20.1); Bilirubin, Total 0.3 mg/dL (0.2-1.2); Calc. Creatinine Clearance 132 mL/min (70-130); Calcium 8.8 mg/dL (7.8-10.44); Carbon Dioxide 20 mmol/L (23-31); Chloride 99 mmol/L (98-107); Globulin 4.8 g/dL (2.4-3.5); Glucose 100 mg/dL (80-115); Potassium 4.1 mmol/L (3.5-5.1); Protein, Total 7.8 g/dL (5.8-8.1); Sodium 128 mmol/L (136-145)
[2021-04-25] MEDS: Sodium Bicarbonate Tab 325 MG TAB PO SCH ×3 (08:07→21:39)
[2021-04-25] MEDS: Aspirin 81 mg Enteric Coated Tablet PO SCH (08:07)
[2021-04-25] MEDS: Sodium Chloride 1 GM TAB PO SCH ×3 (08:07→21:40)
[2021-04-25] MEDS: Amlodipine 5 MG TAB PO SCH (08:07)
[2021-04-25] MEDS: Famotidine 20 MG TAB PO SCH ×2 (08:09→21:39)
[2021-04-25] MEDS: Enoxaparin Sodium 40 MG/0.4 ML SYRINGE SC SCH (08:09)
[2021-04-25] MEDS: Atorvastatin Calcium 20 MG TAB PO SCH (21:39)
[2021-04-25] MEDS: Nicotine 21 MG PATCH TD SCH (21:41)
[2021-04-26] MEDS: Dexamethasone 4 mg/ml Vial SLOW IVP SCH ×3 (06:07→21:06)
[2021-04-26 09:02] LABS: #Lymphocytes 2.5 thou/uL (1.20-3.40); #Monocytes 0.9 thou/uL (0.11-0.59); #Neutrophils 14.1 thou/uL (1.40-6.50); %Basophils 0.3 % (0.0-1.0); %Eosinophils 0.2 % (0.0-10.0); %Lymphocytes 14.1 % (21.0-51.0); %Monocytes 5.3 % (0.0-10.0); %Neutrophils 80.1 % (42.0-75.0); Hemoglobin 12.2 g/dL (12.0-16.0); Mean Corpuscular HGB CONC 30.7 g/dL (32.0-36.0); Mean Corpuscular Hemoglobin 22.2 pg (27.0-31.0); Mean Corpuscular Volume 72.3 fL (78.0-98.0); Mean Platelet Volume 9.1 fL (7.4-10.4); Platelet Count 411 thou/uL (130-400); Red Blood Cell (RBC) Count 5.49 mill/uL (4.20-5.40); White Blood Cell (WBC) Count 17.6 thou/uL (4.8-10.8)
[2021-04-26] MEDS: Enoxaparin Sodium 40 MG/0.4 ML SYRINGE SC SCH (09:05)
[2021-04-26] MEDS: Amlodipine 5 MG TAB PO SCH (09:05)
[2021-04-26] MEDS: Aspirin 81 mg Enteric Coated Tablet PO SCH (09:05)
[2021-04-26] MEDS: Sodium Bicarbonate Tab 325 MG TAB PO SCH ×3 (09:06→21:05)
[2021-04-26] MEDS: Famotidine 20 MG TAB PO SCH ×2 (09:06→21:05)
[2021-04-26] MEDS: Sodium Chloride 1 GM TAB PO SCH ×3 (09:06→21:06)
[2021-04-26 09:16] LABS: Anion Gap 12 mmol/L (10-20); BUN (Urea Nitrogen) 16 mg/dL (9.8-20.1); Calc. Creatinine Clearance 132 mL/min (70-130); Calcium 9.1 mg/dL (7.8-10.44); Carbon Dioxide 21 mmol/L (23-31); Chloride 100 mmol/L (98-107); Glucose 97 mg/dL (80-115); Potassium 4.4 mmol/L (3.5-5.1); Sodium 129 mmol/L (136-145)
[2021-04-26] MEDS ORDERED: Milk Of Magnesia 30 ML UDCUP PO PRN (16:37)
[2021-04-26] MEDS: Atorvastatin Calcium 20 MG TAB PO SCH (21:05)
[2021-04-26] MEDS: Nicotine 21 MG PATCH TD SCH (21:06)
[2021-04-27] MEDS: Dexamethasone 4 mg/ml Vial SLOW IVP SCH ×3 (05:46→23:00)
[2021-04-27 06:25] LABS: ALT (SGPT) 19 U/L (8-55); AST (SGOT) 16 U/L (5-34); Alkaline Phosphatase 86 U/L (40-110); Anion Gap 11 mmol/L (10-20); BUN (Urea Nitrogen) 22 mg/dL (9.8-20.1); Bilirubin, Direct 0.2 mg/dL (0.1-0.3); Bilirubin, Total 0.5 mg/dL (0.2-1.2); Calc. Creatinine Clearance 130 mL/min (70-130); Calcium 8.8 mg/dL (7.8-10.44); Carbon Dioxide 23 mmol/L (23-31); Chloride 102 mmol/L (98-107); Glucose 110 mg/dL (80-115); Potassium 4.1 mmol/L (3.5-5.1); Protein, Total 7.5 g/dL (5.8-8.1); Sodium 132 mmol/L (136-145)
[2021-04-27 06:39] LABS: Hemoglobin 11.8 g/dL (12.0-16.0); Mean Corpuscular HGB CONC 31.4 g/dL (32.0-36.0); Mean Corpuscular Hemoglobin 22.7 pg (27.0-31.0); Mean Corpuscular Volume 72.3 fL (78.0-98.0); Mean Platelet Volume 9.2 fL (7.4-10.4); Platelet Count 399 thou/uL (130-400); RBC Distribution Width 17.7 % (11.5-14.5); Red Blood Cell (RBC) Count 5.18 mill/uL (4.20-5.40); White Blood Cell (WBC) Count 17.7 thou/uL (4.8-10.8)
[2021-04-27] MEDS: Sodium Chloride 1 GM TAB PO SCH ×3 (08:37→20:16)
[2021-04-27] MEDS: Aspirin 81 mg Enteric Coated Tablet PO SCH (08:38)
[2021-04-27] MEDS: Amlodipine 5 MG TAB PO SCH (08:38)
[2021-04-27] MEDS: Sodium Bicarbonate Tab 325 MG TAB PO SCH ×3 (08:38→20:16)
[2021-04-27] MEDS: Pantoprazole 40 MG VIAL IVP SCH (08:39)
[2021-04-27] MEDS: Famotidine 20 MG TAB PO SCH ×2 (08:39→20:15)
[2021-04-27] MEDS: Enoxaparin Sodium 40 MG/0.4 ML SYRINGE SC SCH (08:39)
[2021-04-27 11:27] LABS: Band 3 % (5-11); Eosinophils 1 % (0-10); Lymphocytes 19 % (21-51); MDiff Complete? YES; Monocytes 4 % (0-10); Neutrophil 73 % (42-75); Platelet Morphology Comment Appears Adequate; RBC Morphology Normal
[2021-04-27 11:37] LABS: SARS-CoV-2 PCR by NAA Not Detected (NotDetected)
[2021-04-27] MEDS: Bisacodyl 5 MG TAB PO PRN (20:15)
[2021-04-27] MEDS: Atorvastatin Calcium 20 MG TAB PO SCH (20:15)
[2021-04-27] MEDS: Nicotine 21 MG PATCH TD SCH (20:16)
[2021-04-28] MEDS: Dexamethasone 4 mg/ml Vial SLOW IVP SCH ×3 (06:44→21:24)
[2021-04-28] MEDS: Enoxaparin Sodium 40 MG/0.4 ML SYRINGE SC SCH (08:46)
[2021-04-28] MEDS: Sodium Bicarbonate Tab 325 MG TAB PO SCH ×3 (08:46→21:20)
[2021-04-28] MEDS: Famotidine 20 MG TAB PO SCH ×2 (08:47→21:21)
[2021-04-28] MEDS: Pantoprazole 40 MG VIAL IVP SCH (08:47)
[2021-04-28] MEDS: Aspirin 81 mg Enteric Coated Tablet PO SCH (08:47)
[2021-04-28] MEDS: Amlodipine 5 MG TAB PO SCH (08:48)
[2021-04-28] MEDS: Sodium Chloride 1 GM TAB PO SCH ×3 (10:01→21:20)
[2021-04-28 10:48] LABS: #Lymphocytes 1.9 thou/uL (1.20-3.40); #Monocytes 0.4 thou/uL (0.11-0.59); #Neutrophils 12.2 thou/uL (1.40-6.50); %Basophils 0.1 % (0.0-1.0); %Eosinophils 0.2 % (0.0-10.0); %Lymphocytes 12.9 % (21.0-51.0); %Monocytes 2.7 % (0.0-10.0); %Neutrophils 84.1 % (42.0-75.0); Mean Corpuscular HGB CONC 32.1 g/dL (32.0-36.0); Mean Corpuscular Hemoglobin 23.3 pg (27.0-31.0); Mean Corpuscular Volume 72.6 fL (78.0-98.0); Mean Platelet Volume 9.5 fL (7.4-10.4); Platelet Count 347 thou/uL (130-400); RBC Distribution Width 18.3 % (11.5-14.5); Red Blood Cell (RBC) Count 5.15 mill/uL (4.20-5.40); White Blood Cell (WBC) Count 14.5 thou/uL (4.8-10.8)
[2021-04-28 11:15] LABS: Anion Gap 13 mmol/L (10-20); BUN (Urea Nitrogen) 21 mg/dL (9.8-20.1); Calc. Creatinine Clearance 128 mL/min (70-130); Calcium 8.8 mg/dL (7.8-10.44); Carbon Dioxide 21 mmol/L (23-31); Chloride 101 mmol/L (98-107); Glucose 162 mg/dL (80-115); Potassium 3.9 mmol/L (3.5-5.1); Sodium 131 mmol/L (136-145)
[2021-04-28] MEDS: Bisacodyl 5 MG TAB PO PRN (16:26)
[2021-04-28] MEDS: Atorvastatin Calcium 20 MG TAB PO SCH (21:21)
[2021-04-28] MEDS: Nicotine 21 MG PATCH TD SCH (21:24)
[2021-04-29 05:46] LABS: #Lymphocytes 2.8 thou/uL (1.20-3.40); #Monocytes 0.9 thou/uL (0.11-0.59); #Neutrophils 14.6 thou/uL (1.40-6.50); %Basophils 0.1 % (0.0-1.0); %Eosinophils 0.1 % (0.0-10.0); %Lymphocytes 15.1 % (21.0-51.0); %Neutrophils 79.7 % (42.0-75.0); Hemoglobin 11.7 g/dL (12.0-16.0); Mean Corpuscular HGB CONC 30.6 g/dL (32.0-36.0); Mean Corpuscular Hemoglobin 22.3 pg (27.0-31.0); Mean Corpuscular Volume 72.7 fL (78.0-98.0); Mean Platelet Volume 9.6 fL (7.4-10.4); Platelet Count 343 thou/uL (130-400); RBC Distribution Width 18.6 % (11.5-14.5); Red Blood Cell (RBC) Count 5.23 mill/uL (4.20-5.40); White Blood Cell (WBC) Count 18.3 thou/uL (4.8-10.8)
[2021-04-29 06:12] LABS: Anion Gap 9 mmol/L (10-20); BUN (Urea Nitrogen) 23 mg/dL (9.8-20.1); Calc. Creatinine Clearance 135 mL/min (70-130); Calcium 8.8 mg/dL (7.8-10.44); Carbon Dioxide 23 mmol/L (23-31); Chloride 102 mmol/L (98-107); Glucose 113 mg/dL (80-115); Potassium 3.9 mmol/L (3.5-5.1); Sodium 130 mmol/L (136-145)
[2021-04-29] MEDS: Dexamethasone 4 mg/ml Vial SLOW IVP SCH ×3 (06:46→21:26)
[2021-04-29] MEDS: Famotidine 20 MG TAB PO SCH ×2 (09:15→21:26)
[2021-04-29] MEDS: Aspirin 81 mg Enteric Coated Tablet PO SCH (09:15)
[2021-04-29] MEDS: Amlodipine 5 MG TAB PO SCH (09:15)
[2021-04-29] MEDS: Pantoprazole 40 MG VIAL IVP SCH (09:15)
[2021-04-29] MEDS: Sodium Bicarbonate Tab 325 MG TAB PO SCH ×3 (09:15→21:26)
[2021-04-29] MEDS: Enoxaparin Sodium 40 MG/0.4 ML SYRINGE SC SCH (09:16)
[2021-04-29] MEDS: Sodium Chloride 1 GM TAB PO SCH ×3 (09:16→21:26)
[2021-04-29] MEDS ORDERED: Magnevist 469MG/ML 20 ML VIAL ONE (10:14)
[2021-04-29] MEDS: Atorvastatin Calcium 20 MG TAB PO SCH (21:26)
[2021-04-29] MEDS: Nicotine 21 MG PATCH TD SCH (21:27)
[2021-04-30] MEDS: Dexamethasone 4 mg/ml Vial SLOW IVP SCH ×3 (05:08→22:34)
[2021-04-30] MEDS: Famotidine 20 MG TAB PO SCH ×2 (10:05→20:19)
[2021-04-30] MEDS: Amlodipine 5 MG TAB PO SCH (10:05)
[2021-04-30] MEDS: Sodium Chloride 1 GM TAB PO SCH ×3 (10:05→20:19)
[2021-04-30] MEDS: Aspirin 81 mg Enteric Coated Tablet PO SCH (10:05)
[2021-04-30] MEDS: Sodium Bicarbonate Tab 325 MG TAB PO SCH ×3 (10:05→20:19)
[2021-04-30] MEDS: Pantoprazole 40 MG VIAL IVP SCH (10:06)
[2021-04-30] MEDS: Enoxaparin Sodium 40 MG/0.4 ML SYRINGE SC SCH (10:06)
[2021-04-30] MEDS: Atorvastatin Calcium 20 MG TAB PO SCH (20:19)
[2021-04-30] MEDS: Nicotine 21 MG PATCH TD SCH (20:19)
[2021-05-01] MEDS: Dexamethasone 4 mg/ml Vial SLOW IVP SCH ×3 (06:09→22:17)
[2021-05-01] MEDS: Amlodipine 5 MG TAB PO SCH (08:26)
[2021-05-01] MEDS: Famotidine 20 MG TAB PO SCH ×2 (08:26→22:16)
[2021-05-01] MEDS: Aspirin 81 mg Enteric Coated Tablet PO SCH (08:26)
[2021-05-01] MEDS: Sodium Bicarbonate Tab 325 MG TAB PO SCH ×3 (08:26→22:16)
[2021-05-01] MEDS: Sodium Chloride 1 GM TAB PO SCH ×3 (08:26→22:16)
[2021-05-01] MEDS: Pantoprazole 40 MG VIAL IVP SCH (08:27)
[2021-05-01] MEDS: Enoxaparin Sodium 40 MG/0.4 ML SYRINGE SC SCH (13:13)
[2021-05-01] MEDS: Atorvastatin Calcium 20 MG TAB PO SCH (22:16)
[2021-05-01] MEDS: Nicotine 21 MG PATCH TD SCH (22:31)
[2021-05-02] MEDS: Dexamethasone 4 mg/ml Vial SLOW IVP SCH ×3 (06:00→21:02)
[2021-05-02] MEDS: Enoxaparin Sodium 40 MG/0.4 ML SYRINGE SC SCH (08:44)
[2021-05-02] MEDS: Sodium Chloride 1 GM TAB PO SCH ×3 (08:45→20:58)
[2021-05-02] MEDS: Aspirin 81 mg Enteric Coated Tablet PO SCH (08:45)
[2021-05-02] MEDS: Pantoprazole 40 MG VIAL IVP SCH (08:45)
[2021-05-02] MEDS: Sodium Bicarbonate Tab 325 MG TAB PO SCH ×3 (08:45→20:57)
[2021-05-02] MEDS: Amlodipine 5 MG TAB PO SCH (08:45)
[2021-05-02] MEDS: Famotidine 20 MG TAB PO SCH ×2 (08:46→20:57)
[2021-05-02] MEDS: Atorvastatin Calcium 20 MG TAB PO SCH (20:57)
[2021-05-02] MEDS: Nicotine 21 MG PATCH TD SCH (20:58)
[2021-05-03] MEDS: Dexamethasone 4 mg/ml Vial SLOW IVP SCH ×3 (05:20→21:04)
[2021-05-03] MEDS: Sodium Bicarbonate Tab 325 MG TAB PO SCH ×3 (08:02→21:03)
[2021-05-03] MEDS: Amlodipine 5 MG TAB PO SCH (08:02)
[2021-05-03] MEDS: Famotidine 20 MG TAB PO SCH ×2 (08:02→21:03)
[2021-05-03] MEDS: Aspirin 81 mg Enteric Coated Tablet PO SCH (08:02)
[2021-05-03] MEDS: Pantoprazole 40 MG VIAL IVP SCH (08:03)
[2021-05-03] MEDS: Enoxaparin Sodium 40 MG/0.4 ML SYRINGE SC SCH (08:03)
[2021-05-03] MEDS: Sodium Chloride 1 GM TAB PO SCH ×3 (08:03→21:03)
[2021-05-03] MEDS: Nicotine 21 MG PATCH TD SCH (21:03)
[2021-05-03] MEDS: Atorvastatin Calcium 20 MG TAB PO SCH (21:05)
[2021-05-04] MEDS: Dexamethasone 4 mg/ml Vial SLOW IVP SCH ×3 (05:14→22:25)
[2021-05-04 06:09] LABS: Band 2 % (5-11); Hemoglobin 12.4 g/dL (12.0-16.0); Lymphocytes 12 % (21-51); MDiff Complete? YES; Mean Corpuscular HGB CONC 32.4 g/dL (32.0-36.0); Mean Corpuscular Hemoglobin 23.7 pg (27.0-31.0); Mean Corpuscular Volume 73.1 fL (78.0-98.0); Mean Platelet Volume 9.7 fL (7.4-10.4); Monocytes 8 % (0-10); Neutrophil 78 % (42-75); Platelet Count 288 thou/uL (130-400); Platelet Morphology Comment Appears Adequate; RBC Distribution Width 18.5 % (11.5-14.5); Red Blood Cell (RBC) Count 5.22 mill/uL (4.20-5.40); White Blood Cell (WBC) Count 21.6 thou/uL (4.8-10.8)
[2021-05-04 06:19] LABS: Anion Gap 11 mmol/L (10-20); BUN (Urea Nitrogen) 21 mg/dL (9.8-20.1); Calc. Creatinine Clearance 149 mL/min (70-130); Calcium 8.8 mg/dL (7.8-10.44); Carbon Dioxide 23 mmol/L (23-31); Chloride 99 mmol/L (98-107); Glucose 99 mg/dL (80-115); Potassium 4.3 mmol/L (3.5-5.1); Sodium 129 mmol/L (136-145)
[2021-05-04] MEDS: Sodium Bicarbonate Tab 325 MG TAB PO SCH ×3 (10:28→22:24)
[2021-05-04] MEDS: Aspirin 81 mg Enteric Coated Tablet PO SCH (10:28)
[2021-05-04] MEDS: Famotidine 20 MG TAB PO SCH ×2 (10:29→22:24)
[2021-05-04] MEDS: Sodium Chloride 1 GM TAB PO SCH ×3 (10:29→22:24)
[2021-05-04] MEDS: Enoxaparin Sodium 40 MG/0.4 ML SYRINGE SC SCH (10:29)
[2021-05-04] MEDS: Amlodipine 5 MG TAB PO SCH (10:29)
[2021-05-04] MEDS: Pantoprazole 40 MG VIAL IVP SCH (10:30)
[2021-05-04] MEDS: Atorvastatin Calcium 20 MG TAB PO SCH (22:24)
[2021-05-04] MEDS: Nicotine 21 MG PATCH TD SCH (22:28)
[2021-05-04 23:01] LABS: SARS-CoV-2 PCR by NAA Not Detected (NotDetected)
[2021-05-05] MEDS: Dexamethasone 4 mg/ml Vial SLOW IVP SCH ×3 (04:21→20:39)
[2021-05-05 05:35] LABS: #Lymphocytes 2.4 thou/uL (1.20-3.40); #Monocytes 0.9 thou/uL (0.11-0.59); #Neutrophils 18.4 thou/uL (1.40-6.50); %Eosinophils 0.1 % (0.0-10.0); %Lymphocytes 10.9 % (21.0-51.0); Hemoglobin 12.6 g/dL (12.0-16.0); Mean Corpuscular HGB CONC 32.1 g/dL (32.0-36.0); Mean Corpuscular Hemoglobin 23.4 pg (27.0-31.0); Mean Platelet Volume 10.2 fL (7.4-10.4); Platelet Count 276 thou/uL (130-400); RBC Distribution Width 18.9 % (11.5-14.5); Red Blood Cell (RBC) Count 5.36 mill/uL (4.20-5.40); White Blood Cell (WBC) Count 21.6 thou/uL (4.8-10.8)
[2021-05-05 05:55] LABS: Anion Gap 10 mmol/L (10-20); BUN (Urea Nitrogen) 22 mg/dL (9.8-20.1); Calc. Creatinine Clearance 135 mL/min (70-130); Calcium 8.9 mg/dL (7.8-10.44); Carbon Dioxide 25 mmol/L (23-31); Chloride 102 mmol/L (98-107); Glucose 124 mg/dL (80-115); Potassium 4.2 mmol/L (3.5-5.1); Sodium 133 mmol/L (136-145)
[2021-05-05] MEDS: Famotidine 20 MG TAB PO SCH ×2 (09:15→20:37)
[2021-05-05] MEDS: Sodium Bicarbonate Tab 325 MG TAB PO SCH ×3 (09:15→20:37)
[2021-05-05] MEDS: Amlodipine 5 MG TAB PO SCH (09:15)
[2021-05-05] MEDS: Sodium Chloride 1 GM TAB PO SCH ×3 (09:15→20:37)
[2021-05-05] MEDS: Aspirin 81 mg Enteric Coated Tablet PO SCH (09:15)
[2021-05-05] MEDS: Enoxaparin Sodium 40 MG/0.4 ML SYRINGE SC SCH (09:16)
[2021-05-05] MEDS: Pantoprazole 40 MG VIAL IVP SCH (09:16)
[2021-05-05] MEDS: Atorvastatin Calcium 20 MG TAB PO SCH (20:37)
[2021-05-05] MEDS: Nicotine 21 MG PATCH TD SCH (20:38)
[2021-05-06] MEDS: Dexamethasone 4 mg/ml Vial SLOW IVP SCH ×3 (04:46→22:01)
[2021-05-06 06:25] LABS: Hemoglobin 12.8 g/dL (12.0-16.0); Mean Corpuscular HGB CONC 31.7 g/dL (32.0-36.0); Mean Corpuscular Hemoglobin 23.3 pg (27.0-31.0); Mean Corpuscular Volume 73.5 fL (78.0-98.0); Mean Platelet Volume 10.2 fL (7.4-10.4); Platelet Count 283 thou/uL (130-400); RBC Distribution Width 19.3 % (11.5-14.5); Red Blood Cell (RBC) Count 5.48 mill/uL (4.20-5.40); White Blood Cell (WBC) Count 26.8 thou/uL (4.8-10.8)
[2021-05-06 06:26] LABS: Band 2 % (5-11); Lymphocytes 15 % (21-51); MDiff Complete? YES; Monocytes 4 % (0-10); Neutrophil 79 % (42-75); Platelet Morphology Comment Appears Adequate
[2021-05-06 06:30] LABS: Anion Gap 12 mmol/L (10-20); BUN (Urea Nitrogen) 22 mg/dL (9.8-20.1); Calc. Creatinine Clearance 152 mL/min (70-130); Calcium 9.1 mg/dL (7.8-10.44); Carbon Dioxide 24 mmol/L (23-31); Chloride 99 mmol/L (98-107); Glucose 116 mg/dL (80-115); Potassium 4.1 mmol/L (3.5-5.1); Sodium 131 mmol/L (136-145)
[2021-05-06] MEDS: Sodium Bicarbonate Tab 325 MG TAB PO SCH ×3 (08:44→20:13)
[2021-05-06] MEDS: Famotidine 20 MG TAB PO SCH ×2 (08:44→20:13)
[2021-05-06] MEDS: Sodium Chloride 1 GM TAB PO SCH ×3 (08:44→20:13)
[2021-05-06] MEDS: Aspirin 81 mg Enteric Coated Tablet PO SCH (08:44)
[2021-05-06] MEDS: Amlodipine 5 MG TAB PO SCH (08:45)
[2021-05-06] MEDS: Pantoprazole 40 MG VIAL IVP SCH (08:46)
[2021-05-06] MEDS: Enoxaparin Sodium 40 MG/0.4 ML SYRINGE SC SCH (08:46)
[2021-05-06] MEDS: Atorvastatin Calcium 20 MG TAB PO SCH (20:13)
[2021-05-06] MEDS: Nicotine 21 MG PATCH TD SCH (20:14)
[2021-05-07] MEDS: Dexamethasone 4 mg/ml Vial SLOW IVP SCH ×3 (06:00→20:52)
[2021-05-07] MEDS: Pantoprazole 40 MG VIAL IVP SCH (10:29)
[2021-05-07] MEDS: Aspirin 81 mg Enteric Coated Tablet PO SCH (10:29)
[2021-05-07] MEDS: Sodium Bicarbonate Tab 325 MG TAB PO SCH ×3 (10:29→20:52)
[2021-05-07] MEDS: Enoxaparin Sodium 40 MG/0.4 ML SYRINGE SC SCH (10:29)
[2021-05-07] MEDS: Amlodipine 5 MG TAB PO SCH (10:30)
[2021-05-07] MEDS: Famotidine 20 MG TAB PO SCH ×2 (10:30→20:52)
[2021-05-07] MEDS: Sodium Chloride 1 GM TAB PO SCH ×3 (10:39→20:53)
[2021-05-07] MEDS: Nicotine 21 MG PATCH TD SCH (20:52)
[2021-05-07] MEDS: Atorvastatin Calcium 20 MG TAB PO SCH (20:52)
[2021-05-08] MEDS: Dexamethasone 4 mg/ml Vial SLOW IVP SCH ×3 (05:46→22:30)
[2021-05-08 06:52] LABS: Mean Corpuscular HGB CONC 31.5 g/dL (32.0-36.0); Mean Corpuscular Hemoglobin 23.3 pg (27.0-31.0); Mean Corpuscular Volume 74.1 fL (78.0-98.0); Mean Platelet Volume 10.5 fL (7.4-10.4); Platelet Count 215 thou/uL (130-400); RBC Distribution Width 19.5 % (11.5-14.5); Red Blood Cell (RBC) Count 5.15 mill/uL (4.20-5.40)
[2021-05-08 07:56] LABS: Anion Gap 14 mmol/L (10-20); BUN (Urea Nitrogen) 18 mg/dL (9.8-20.1); Calc. Creatinine Clearance 162 mL/min (70-130); Calcium 8.9 mg/dL (7.8-10.44); Carbon Dioxide 22 mmol/L (23-31); Chloride 100 mmol/L (98-107); Glucose 98 mg/dL (80-115); Potassium 4.1 mmol/L (3.5-5.1); Sodium 132 mmol/L (136-145)
[2021-05-08 08:40] LABS: Band 2 % (5-11); Hypochromia SLIGHT = 6-15 cells (100X) (0-5/hpf); Lymphocytes 13 % (21-51); MDiff Complete? YES; Microcytosis SLIGHT = 6-15 cells (100X) (0-5/hpf); Monocytes 3 % (0-10); Neutrophil 82 % (42-75); Platelet Morphology Comment Appears Adequate; Polychromasia SLIGHT = 2-3 cells (100X) (0-2/hpf)
[2021-05-08] MEDS: Enoxaparin Sodium 40 MG/0.4 ML SYRINGE SC SCH (10:21)
[2021-05-08] MEDS: Aspirin 81 mg Enteric Coated Tablet PO SCH (10:21)
[2021-05-08] MEDS: Pantoprazole 40 MG VIAL IVP SCH (10:21)
[2021-05-08] MEDS: Sodium Chloride 1 GM TAB PO SCH ×3 (10:22→20:34)
[2021-05-08] MEDS: Famotidine 20 MG TAB PO SCH ×2 (10:22→20:34)
[2021-05-08] MEDS: Amlodipine 5 MG TAB PO SCH (10:22)
[2021-05-08] MEDS: Sodium Bicarbonate Tab 325 MG TAB PO SCH ×3 (10:22→20:34)
[2021-05-08] MEDS: Atorvastatin Calcium 20 MG TAB PO SCH (20:33)
[2021-05-08] MEDS: Nicotine 21 MG PATCH TD SCH (20:35)
[2021-05-08] MEDS ORDERED: Dexamethasone 4 MG TAB PO SCH (22:30)
[2021-05-09] MEDS: Famotidine 20 MG TAB PO SCH ×2 (08:40→19:40)
[2021-05-09] MEDS: Amlodipine 5 MG TAB PO SCH (08:40)
[2021-05-09] MEDS: Aspirin 81 mg Enteric Coated Tablet PO SCH (08:40)
[2021-05-09] MEDS: Sodium Chloride 1 GM TAB PO SCH ×3 (08:40→19:40)
[2021-05-09] MEDS: Dexamethasone 4 MG TAB PO SCH ×2 (08:40→17:39)
[2021-05-09] MEDS: Sodium Bicarbonate Tab 325 MG TAB PO SCH ×3 (08:40→19:40)
[2021-05-09] MEDS: Enoxaparin Sodium 40 MG/0.4 ML SYRINGE SC SCH (08:41)
[2021-05-09] MEDS: Atorvastatin Calcium 20 MG TAB PO SCH (19:41)
[2021-05-09] MEDS: Nicotine 21 MG PATCH TD SCH (19:41)
[2021-05-10 05:51] LABS: #Lymphocytes 3.5 thou/uL (1.20-3.40); #Monocytes 1.2 thou/uL (0.11-0.59); #Neutrophils 18.8 thou/uL (1.40-6.50); %Eosinophils 0.1 % (0.0-10.0); %Lymphocytes 14.8 % (21.0-51.0); %Monocytes 4.9 % (0.0-10.0); %Neutrophils 80.1 % (42.0-75.0); Hemoglobin 12.6 g/dL (12.0-16.0); Mean Corpuscular HGB CONC 31.1 g/dL (32.0-36.0); Mean Corpuscular Hemoglobin 23.4 pg (27.0-31.0); Mean Corpuscular Volume 75.1 fL (78.0-98.0); Mean Platelet Volume 10.8 fL (7.4-10.4); Platelet Count 216 thou/uL (130-400); RBC Distribution Width 19.8 % (11.5-14.5); Red Blood Cell (RBC) Count 5.37 mill/uL (4.20-5.40); White Blood Cell (WBC) Count 23.4 thou/uL (4.8-10.8)
[2021-05-10 06:13] LABS: Anion Gap 14 mmol/L (10-20); BUN (Urea Nitrogen) 20 mg/dL (9.8-20.1); Calc. Creatinine Clearance 149 mL/min (70-130); Calcium 8.8 mg/dL (7.8-10.44); Carbon Dioxide 25 mmol/L (23-31); Chloride 101 mmol/L (98-107); Glucose 91 mg/dL (80-115); Potassium 4.1 mmol/L (3.5-5.1); Sodium 136 mmol/L (136-145)
[2021-05-10] MEDS: Sodium Bicarbonate Tab 325 MG TAB PO SCH ×3 (09:42→21:06)
[2021-05-10] MEDS: Enoxaparin Sodium 40 MG/0.4 ML SYRINGE SC SCH (09:42)
[2021-05-10] MEDS: Sodium Chloride 1 GM TAB PO SCH ×3 (09:42→21:06)
[2021-05-10] MEDS: Dexamethasone 4 MG TAB PO SCH ×2 (09:42→16:33)
[2021-05-10] MEDS: Aspirin 81 mg Enteric Coated Tablet PO SCH (09:42)
[2021-05-10] MEDS: Amlodipine 5 MG TAB PO SCH (09:42)
[2021-05-10] MEDS: Famotidine 20 MG TAB PO SCH ×2 (09:42→21:06)
[2021-05-10] MEDS: Atorvastatin Calcium 20 MG TAB PO SCH (21:06)
[2021-05-10] MEDS: Nicotine 21 MG PATCH TD SCH (21:12)
[2021-05-11 07:01] LABS: Hemoglobin 12.8 g/dL (12.0-16.0); Mean Corpuscular HGB CONC 32.3 g/dL (32.0-36.0); Mean Corpuscular Volume 74.3 fL (78.0-98.0); Mean Platelet Volume 11.2 fL (7.4-10.4); Platelet Count 193 thou/uL (130-400); RBC Distribution Width 19.8 % (11.5-14.5); Red Blood Cell (RBC) Count 5.35 mill/uL (4.20-5.40); White Blood Cell (WBC) Count 24.6 thou/uL (4.8-10.8)
[2021-05-11 07:16] LABS: Anion Gap 14 mmol/L (10-20); BUN (Urea Nitrogen) 16 mg/dL (9.8-20.1); Calc. Creatinine Clearance 166 mL/min (70-130); Calcium 8.5 mg/dL (7.8-10.44); Carbon Dioxide 22 mmol/L (23-31); Chloride 100 mmol/L (98-107); Glucose 95 mg/dL (80-115); Potassium 4.4 mmol/L (3.5-5.1); Sodium 132 mmol/L (136-145)
[2021-05-11 08:22] LABS: Band 11 % (5-11); Lymphocytes 9 % (21-51); MDiff Complete? YES; Microcytosis SLIGHT = 6-15 cells (100X) (0-5/hpf); Monocytes 7 % (0-10); Neutrophil 73 % (42-75); Platelet Morphology Comment Appears Adequate; Polychromasia SLIGHT = 2-3 cells (100X) (0-2/hpf)
[2021-05-11] MEDS: Dexamethasone 4 MG TAB PO SCH ×2 (10:40→17:04)
[2021-05-11] MEDS: Amlodipine 5 MG TAB PO SCH (10:41)
[2021-05-11] MEDS: Aspirin 81 mg Enteric Coated Tablet PO SCH (10:42)
[2021-05-11] MEDS: Famotidine 20 MG TAB PO SCH ×2 (10:43→20:43)
[2021-05-11] MEDS: Sodium Bicarbonate Tab 325 MG TAB PO SCH ×3 (10:48→20:43)
[2021-05-11] MEDS: Enoxaparin Sodium 40 MG/0.4 ML SYRINGE SC SCH (13:42)
[2021-05-11] MEDS: Sodium Chloride 1 GM TAB PO SCH ×3 (15:07→17:04)
[2021-05-11] MEDS: Atorvastatin Calcium 20 MG TAB PO SCH (20:43)
[2021-05-11] MEDS: Nicotine 21 MG PATCH TD SCH (20:43)
[2021-05-12] MEDS: Amlodipine 5 MG TAB PO SCH (08:01)
[2021-05-12] MEDS: Sodium Chloride 1 GM TAB PO SCH ×3 (08:02→19:41)
[2021-05-12] MEDS: Famotidine 20 MG TAB PO SCH ×2 (08:03→19:41)
[2021-05-12] MEDS: Dexamethasone 4 MG TAB PO SCH ×2 (08:03→19:41)
[2021-05-12] MEDS: Aspirin 81 mg Enteric Coated Tablet PO SCH (08:03)
[2021-05-12] MEDS: Enoxaparin Sodium 40 MG/0.4 ML SYRINGE SC SCH (08:03)
[2021-05-12] MEDS: Sodium Bicarbonate Tab 325 MG TAB PO SCH ×3 (08:03→19:41)
[2021-05-12 12:48] LABS: SARS-CoV-2 PCR by NAA Not Detected (NotDetected)
[2021-05-12] MEDS: Nicotine 21 MG PATCH TD SCH (19:41)
[2021-05-12] MEDS: Atorvastatin Calcium 20 MG TAB PO SCH (19:41)
[2021-05-13] MEDS: Sodium Chloride 1 GM TAB PO SCH ×3 (08:29→20:36)
[2021-05-13] MEDS: Aspirin 81 mg Enteric Coated Tablet PO SCH (08:29)
[2021-05-13] MEDS: Famotidine 20 MG TAB PO SCH ×2 (08:29→20:36)
[2021-05-13] MEDS: Sodium Bicarbonate Tab 325 MG TAB PO SCH ×3 (08:29→20:36)
[2021-05-13] MEDS: Dexamethasone 4 MG TAB PO SCH ×2 (08:30→18:54)
[2021-05-13] MEDS: Amlodipine 5 MG TAB PO SCH (08:30)
[2021-05-13] MEDS: Enoxaparin Sodium 40 MG/0.4 ML SYRINGE SC SCH (08:30)
[2021-05-13] MEDS: Atorvastatin Calcium 20 MG TAB PO SCH (20:36)
[2021-05-13] MEDS: Nicotine 21 MG PATCH TD SCH (20:58)
[2021-05-14] MEDS: Amlodipine 5 MG TAB PO SCH (09:42)
[2021-05-14] MEDS: Dexamethasone 4 MG TAB PO SCH ×2 (09:42→15:45)
[2021-05-14] MEDS: Aspirin 81 mg Enteric Coated Tablet PO SCH (09:43)
[2021-05-14] MEDS: Enoxaparin Sodium 40 MG/0.4 ML SYRINGE SC SCH (09:43)
[2021-05-14] MEDS: Famotidine 20 MG TAB PO SCH (09:44)
[2021-05-14] MEDS: Sodium Bicarbonate Tab 325 MG TAB PO SCH ×2 (09:44→15:45)
[2021-05-14] MEDS: Sodium Chloride 1 GM TAB PO SCH ×2 (09:44→15:45)
[2021-05-14 12:36] VITALS: BP 117/89; TEMP 97.7
== END 2021-05-14 18:55 | disposition hospice, home (50) | DRG 40 ==
LOC: ERS 17:10 → SURG A 20:15
PROVIDERS: ADMIT Internal Medicine; ATTEND Internal Medicine
PROC: 07B63ZX Excision of Left Axillary Lymphatic, Percutaneous Approach, Diagnostic (ICD-10-PCS; principal; 2021-04-23)
DX: C79.31 Secondary malignant neoplasm of brain (principal); G93.6 Cerebral edema; G93.41 Metabolic encephalopathy; C79.49 Secondary malignant neoplasm of other parts of nervous system; C34.12 Malignant neoplasm of upper lobe, left bronchus or lung; E22.2 Syndrome of inappropriate secretion of antidiuretic hormone; C77.9 Secondary and unspecified malignant neoplasm of lymph node, unspecified; C79.51 Secondary malignant neoplasm of bone; C79.72 Secondary malignant neoplasm of left adrenal gland; C79.71 Secondary malignant neoplasm of right adrenal gland; E87.2 Acidosis; I69.951 Hemiplegia and hemiparesis following unspecified cerebrovascular disease affecting right dominant side; J91.0 Malignant pleural effusion; Z66 Do not resuscitate; Z51.5 Encounter for palliative care; Z20.822 Contact with and (suspected) exposure to COVID-19; F17.210 Nicotine dependence, cigarettes, uncomplicated; E87.6 Hypokalemia; D63.0 Anemia in neoplastic disease; D50.9 Iron deficiency anemia, unspecified; J43.9 Emphysema, unspecified; I10 Essential (primary) hypertension; Z79.82 Long term (current) use of aspirin; Z79.899 Other long term (current) drug therapy; Z91.14 Patient's other noncompliance with medication regimen
CPT/HCPCS: 36415; 38505; 51701; 70553; 71045; 71260; 74018; 76999; 80048; 80053; 80061; 80069; 80076; 81003; 82570; 82728; 83540; 83550; 83605; 83735; 83880; 83883; 83930; 83935; 84100; 84300; 84484; 84550; 85025; 88305; 88312; 88333; 88341; 88342; 93005; 93975; A9579; C9113; J1100; J1650; J2916; J7050; J8540; Q9967; U0003; U0005